=== PATIENT | male | born 1980 | race Hispanic/Latino ===

== ENCOUNTER 2018-04-03 19:56 | Inpatient (IN) | payer SELFPAY ==
[~2018-04-03] VITALS: Ht 188 cm; Wt 154.5 kg
[~2018-04-03 19:56] MED LIST: CLINDAMYCIN HC150 MG PO
--- OUTSIDE RECORDS SUMMARY | 2018-04-03 20:00 | XMS REPORT | Clinical Summary ---
Author Author Agg[facility]wal [facility] Organization [facility] Address Unknown Phone Unavailable Care Team Providers Care Wash Driller Name Role Phone Asked, No Pcp PCP Unavailable Allergies No Known Allergies Medications End Date Status Medication Sig Dispensed Refills Start Date 04/28/2017 clindamycin (CLEOCIN) 300 Take 1 28 capsule 0 MG capsule capsule (300 8 mg total) by mouth every 6 (six) hours for 7 days. 05/01/2017 acetaminophen-codeine Take 1-2 15 tablet 0 (TYLENOL WITH CODEINE #3) tablets by 8 300-30 mg per tablet mouth every 6 (six) hours as needed for mild pain or moderate pain for up to 10 days. Active Problems Not on file Encounters Care Team Description Date Type Specialty Maurice Moss MD Facial abscess (Primary Dx); Cellulitis of face 04/21/2017 Emergency Emergency Medicine after 04/02/2017 Social History Date Tobacco Use Types Packs/Day Years Used Never Smoker Smokeless Tobacco: Never Used Alcohol Use Drinks/Week oz/Week Comments No Sex Assigned at Date Recorded Not on file Industry Job Start Date Occupation Not on file Not on file Not on file Travel End Travel History Travel Start No recent travel history available. Last Filed Vital Signs Time Taken Vital Sign Reading 04/21/2017 9:22 PM LAMP INSPECTOR Blood Pressure 137/70 04/21/2017 9:22 PM LAMP INSPECTOR Pulse 89 04/21/2017 9:22 PM LAMP INSPECTOR Temperature 36.7 C (98 F) 04/21/2017 9:22 PM LAMP INSPECTOR Respiratory Rate 20 04/21/2017 9:22 PM LAMP INSPECTOR Oxygen Saturation 98% - Inhaled Oxygen - Concentration - Weight - 04/21/2017 5:47 PM LAMP INSPECTOR Height 188 cm (6' 2") - Body Mass Index - Plan of Treatment Not on file Procedures Comments Procedure Name Priority Date/Time Associated Diagnosis MA DRAIN SKIN ABSCESS Routine 04/22/2017 SIMPLE 2:48 AM LAMP INSPECTOR POC GLUCOSE Routine 04/21/2017 9:08 PM LAMP INSPECTOR after 04/02/2017 Results * INCISION AND DRAINAGE (04/22/2017 2:48 AM LAMP INSPECTOR) Narrative Performed At Maurice Moss MD 04/22/20172:48 AM I&D/Aspiration/Amputation Performed by: LUCAS CORBETT Authorized by: MAURICE MOSS Consent: Consent obtained:Verbal Consent given by:Patient Risks discussed:Bleeding, incomplete drainage, pain, infection and damage to other organs Location: Type:Abscess Location:Head/neck Head/neck location:Face Pre-procedure details: Skin preparation:Betadine Anesthesia (see MAR for exact dosages): Anesthesia method:Local infiltration Local anesthetic:Lidocaine 1% WITH epi Procedure details: Complexity:Simple Incision types:Stab incision Scalpel blade:11 Drainage:Purulent and serosanguinous Drainage amount:Moderate Wound treatment:Wound left open Packing materials:None Post-procedure details: Patient tolerance of procedure:Tolerated well, no immediate complications * POC glucose (04/21/2017 9:08 PM LAMP INSPECTOR) POC glucose 329 (H) 65 - 100 mg/dL [facility] [place] [facility] Comment: PATHOLOGY AND Meter ID: [id number] GENOMIC MEDICINE Vice President Safety: Faizan Dee Performing Organization Address City/State/Zipcode Phone Number [facility] [place] [facility] [address] [place] [address] PATHOLOGY AND GENOMIC MEDICINE after 04/02/2017 Advance Directives Patient has advance care planning documents on file. For more information, maria luisa schultz contact: Jasen Romo [address] [place] [address]
[2018-04-03] MEDS ORDERED: SODIUM CHLORIDE 0.9% 1000ML 1,000 ML IV STA (20:18)
[2018-04-03] MEDS ORDERED: ONDANSETRON HCL INJ 2MG/ML 2ML 2 MG/ML VIAL IV ONE (20:30)
[2018-04-03] MEDS ORDERED: PIPER-TAZ 3.375 GM 50 ML IV ONE (20:30)
[2018-04-03] MEDS ORDERED: VANCOMYCIN 1GM/NS 250 ML 250 ML IV ONE (20:30)
[2018-04-03] MEDS ORDERED: MORPHINE SULFATE INJ 4 MG/ML INJ 1ML IV ONE (20:30)
[2018-04-03 20:41] LABS: BASOPHILS % 0.3 % (0.0-1.0); EOSINOPHILS # (AUTO) 0.1 (0.0-0.4); EOSINOPHILS % 0.4 % (0.0-6.0); HEMATOCRIT 42.9 % (38.2-49.6); LYMPHOCYTES % 15.9 % (18.0-39.1); MEAN CORPUSCULAR HEMOGLOBIN 28.2 pg (28-32); MEAN CORPUSCULAR VOLUME 80.8 fL (81-99); MONOCYTES # (AUTO) 0.9 (0.2-0.8); MONOCYTES % 6.8 % (4.4-11.3); NEUTROPHILS # (AUTO) 9.6 (2.1-6.9); NEUTROPHILS % 76.2 % (38.7-80.0); PLATELET COUNT 198 x10e3/uL (140-360); RED BLOOD COUNT 5.31 x10e6/uL (4.3-5.7); RED CELL DISTRIBUTION WIDTH 13.2 % (11.7-14.4)
[2018-04-03 20:54] LABS: ALANINE AMINOTRANSFERASE 24 IU/L (0-55); ALBUMIN 3.6 g/dL (3.5-5.0); ALBUMIN/GLOBULIN RATIO 0.9 (0.8-2.0); ALKALINE PHOSPHATASE 76 IU/L (40-150); ANION GAP 13.5 mmol/L (8-16); BLOOD UREA NITROGEN 11 mg/dL (7-26); BUN/CREATININE RATIO 11 (6-25); CALCIUM 9.5 mg/dL (8.4-10.2); CARBON DIOXIDE 28 mmol/L (22-29); CHLORIDE 99 mmol/L (98-107); CREATININE, SERUM 0.97 mg/dL (0.72-1.25); EST GLOMERULAR FILTRATION RATE > 60 ML/MIN (60-); GLUCOSE 260 mg/dL (74-118); POTASSIUM 3.5 mmol/L (3.5-5.1); SODIUM 137 mmol/L (136-145)
[2018-04-03] MEDS ORDERED: DEXTROSE 50% SYRINGE 50 ML IV PRN (22:15)
[2018-04-03] MEDS ORDERED: ONDANSETRON HCL INJ 2MG/ML 2ML 2 MG/ML VIAL IV PRN (22:15)
[2018-04-03] MEDS ORDERED: DIPHENHYDRAMINE HCL INJ 50 MG/ML VIAL IV PRN (22:15)
[2018-04-03] MEDS ORDERED: MORPHINE SULFATE 2 MG/ML SYR 1ML IV PRN (22:15)
[2018-04-03] MEDS ORDERED: ACETAMINOPHEN 325 MG TAB PO PRN (22:15)
[2018-04-03] MEDS ORDERED: LACTULOSE SYRUP 20 GM/30 ML UDC PO PRN (22:15)
[2018-04-03] MEDS ORDERED: HYDRALAZINE HCL 20 MG/ML VIAL IV PRN (22:15)
[2018-04-03] MEDS ORDERED: IBUPROFEN 200 MG TAB PO PRN (22:15)
[2018-04-03] MEDS ORDERED: ZOLPIDEM TARTRATE 5 MG TAB PO PRN (22:15)
[2018-04-03] MEDS ORDERED: ENALAPRILAT IV INJ 1.25 MG/ML VIAL IV PRN (22:15)
[2018-04-03 22:22] LABS: CLARITY,URINE HAZY (CLEAR); COLOR,URINE YELLOW (YELLOW); LEUKOCYTE ESTERASE ,URINE 1+ (NEGATIVE)
[2018-04-03 22:23] LABS: KETONES,URINE TRACE (NEGATIVE); NITRITE,URINE NEGATIVE (NEGATIVE); PROTEIN,URINE DIPSTICK TRACE (NEGATIVE); URINE UROBILINOGEN 0.2 mg/dL (0.2 - 1)
[2018-04-03 22:24] LABS: BACTERIA,URINE FEW /HPF; BILIRUBIN,URINE NEGATIVE (NEGATIVE); EPITHELIAL CELLS,URINE RARE /LPF
--- NOTE | 2018-04-03 22:40 | NUR ---
ADMIT ORDERS RECEIVED, PT UPDATED ON PLAN OF CARE, PT MADE AWARE OF REPORT BEING CALLED.
--- OUTSIDE RECORDS SUMMARY | 2018-04-03 22:42 | XMS REPORT | Clinical Summary ---
Author Author [facility]wal [facility] Organization [facility] Address Unknown Phone Unavailable Care Team Providers Care Rn Case Manager Hospice Name Role Phone Asked, No Pcp PCP [...] Taken Vital Sign Reading 04/21/2017 9:22 PM NAILING MACHINE OPERATOR Blood Pressure 137/70 04/21/2017 9:22 PM NAILING MACHINE OPERATOR Pulse 89 04/21/2017 9:22 PM NAILING MACHINE OPERATOR Temperature 36.7 C (98 F) 04/21/2017 9:22 PM NAILING MACHINE OPERATOR Respiratory Rate 20 04/21/2017 9:22 PM NAILING MACHINE OPERATOR Oxygen Saturation 98% - Inhaled Oxygen - Concentration - Weight - 04/21/2017 5:47 PM NAILING MACHINE OPERATOR Height 188 cm (6' 2") - Body Mass Index - Plan of Treatment Not on file Procedures Comments Procedure Name Priority Date/Time Associated Diagnosis [place] DRAIN SKIN ABSCESS Routine 04/22/2017 SIMPLE 2:48 AM NAILING MACHINE OPERATOR POC GLUCOSE Routine 04/21/2017 9:08 PM NAILING MACHINE OPERATOR after 04/02/2017 Results * INCISION AND DRAINAGE (04/22/2017 2:48 AM NAILING MACHINE OPERATOR) Narrative Performed At Maurice Moss MD 04/22/20172:48 [...] complications * POC glucose (04/21/2017 9:08 PM NAILING MACHINE OPERATOR) POC glucose 329 (H) 65 - 100 mg/dL [facility] [place] [facility] OF Comment: PATHOLOGY AND Meter ID: [id number] GENOMIC MEDICINE Parts Counter Sales Person: Faizan Dee Performing Organization Address City/State/Zipcode Phone Number [facility] [place] [facility] OF [address] [place] [address] PATHOLOGY AND GENOMIC MEDICINE after 04/02/2017 Advance Directives Patient has advance care planning documents on file. For more information, maria luisa schultz contact: Jasen Romo [address] [place] [address]
--- NOTE | 2018-04-03 23:01 | Diagnostic Imaging Report ---
Exam: CT of the pelvis with IV contrast Indication: Left-sided abscess around testicle, evaluate for extension into the groin Comparison: None Findings: Partially evaluated is a complex cystic structure in the left scrotum measuring approximately 3 cm with adjacent fat stranding and overlying skin thickening. There is no extension into the inguinal canal or pelvis. Normal appearance of the bladder, prostate, seminal vesicles, and partially visualized bowel. Normal appendix. No free fluid or free air. Superficial right leg venous collateral vessels. Normal appearance of the partially visualized arterial system. Impression: There is an approximately 3 cm abscess in the left scrotum. No extension to the perineum or pelvis. Signed by: Dr. Amara Bingham M.D. on 04/03/2018 10:57 PM
[2018-04-03] MEDS: PIPER-TAZ 3.375 GM 50 ML IV SCH (23:54)
[2018-04-03] MEDS: SODIUM CHLORIDE 0.9% 1000ML 1,000 ML IV SCH (23:54)
--- NOTE | 2018-04-03 23:58 | NUR ---
received pt from ER to room 213, AAOx4, resp even and unlabored, c/o of pain /10 to scrotum, pain meds on board, dark purple area to left side of scrotum with a small scabbed area below it, ambulates by self with steady gait, left AC IV 20G patent and intact with NS @125, NPO, pt able to verbalize needs, bed in lowest and locked position with call light in reach, instructed to call when assistance needed
[2018-04-04] VITALS (8 sets, daily range): BP systolic 117–153; BP diastolic 70–94
[2018-04-04] MEDS: ONDANSETRON HCL INJ 2MG/ML 2ML 2 MG/ML VIAL IV PRN ×3 (02:09→21:04)
[2018-04-04] MEDS: MORPHINE SULFATE INJ 4 MG/ML INJ 1ML IV PRN ×5 (02:09→21:04)
[2018-04-04] MEDS: VANCOMYCIN 1GM/NS 250 ML 250 ML IV SCH ×2 (02:30→15:26)
[2018-04-04 05:11] LABS: BASOPHILS % 0.2 % (0.0-1.0); EOSINOPHILS # (AUTO) 0.1 (0.0-0.4); EOSINOPHILS % 0.6 % (0.0-6.0); HEMATOCRIT 38.1 % (38.2-49.6); HEMOGLOBIN 13.2 g/dL (14.0-18.0); LYMPHOCYTES % 19.7 % (18.0-39.1); MEAN CORPUSCULAR HEMOGLOBIN 27.8 pg (28-32); MEAN CORPUSCULAR HGB CONC 34.6 g/dL (31-35); MEAN CORPUSCULAR VOLUME 80.2 fL (81-99); MONOCYTES # (AUTO) 0.7 (0.2-0.8); MONOCYTES % 7.2 % (4.4-11.3); NEUTROPHILS # (AUTO) 7.4 (2.1-6.9); NEUTROPHILS % 71.9 % (38.7-80.0); PLATELET COUNT 176 x10e3/uL (140-360); RED BLOOD COUNT 4.75 x10e6/uL (4.3-5.7); RED CELL DISTRIBUTION WIDTH 13.3 % (11.7-14.4)
[2018-04-04 05:33] LABS: ANION GAP 11.5 mmol/L (8-16); BLOOD UREA NITROGEN 11 mg/dL (7-26); BUN/CREATININE RATIO 14 (6-25); CALCIUM 8.6 mg/dL (8.4-10.2); CARBON DIOXIDE 23 mmol/L (22-29); CHLORIDE 103 mmol/L (98-107); CREATININE, SERUM 0.78 mg/dL (0.72-1.25); EST GLOMERULAR FILTRATION RATE > 60 ML/MIN (60-); GLUCOSE 232 mg/dL (74-118); POTASSIUM 3.5 mmol/L (3.5-5.1); SODIUM 134 mmol/L (136-145)
[2018-04-04] MEDS: PIPER-TAZ 3.375 GM 50 ML IV SCH ×3 (05:43→18:04)
[2018-04-04] MEDS ORDERED: IOPAMIDOL 370 MG/ML 200 ML INFUS..BTL INJ ONE (06:32)
[2018-04-04] MEDS ORDERED: SODIUM CHLORIDE 0.9% 50ML 50 ML ONE (06:32)
--- NOTE | 2018-04-04 06:47 | Diagnostic Imaging Report ---
EXAM: CHEST SINGLE (PORTABLE), AP 1 view INDICATION: Preoperative chest x-ray COMPARISON: None FINDINGS: LINES/TUBES: None LUNGS: No consolidations or edema. PLEURA: No effusions or pneumothorax. HEART AND MEDIASTINUM: Normal size and contour. BONES AND SOFT TISSUES: No acute findings. IMPRESSION: No acute thoracic abnormality. Signed by: Dr. Amara Bingham M.D. on 04/04/2018 6:44 AM
[2018-04-04] MEDS: FAMOTIDINE 20 MG/2 ML VIAL IV SCH ×2 (08:35→18:04)
--- NOTE | 2018-04-04 09:43 | Consultation ---
DISCARD THIS DICTATION STOPPED AT THIS POINT. Job#: [id number] MELCHOR ALARCON
[2018-04-04] MEDS: SODIUM CHLORIDE 0.9% 1000ML 1,000 ML IV SCH ×2 (09:56→22:13)
[2018-04-04] MEDS: INSULIN REGULAR, HUMAN 100 UNIT/1 ML 3ML VIAL SQ SCH ×4 (09:56→20:58)
--- NOTE | 2018-04-04 10:03 | Consultation ---
DATE OF CONSULTATION: April 04, 2018 UROLOGY CONSULTATION REASON FOR CONSULTATION: Scrotal abscess. HISTORY OF PRESENT ILLNESS: Yash Macdonald is a 37-year-old man with no previous urological history. He denies hematuria, dysuria, urinary tract infections, or urolithiasis. Patient presented with a 3-day history of left scrotal swelling and pain. He did not have any fever at home, he had a fever of 99.9 in the emergency room. PAST MEDICAL AND SURGICAL HISTORY: 1. Status post colon resection and colostomy, followed by colostomy takedown for diverticulitis. 2. Diabetes mellitus. 3. Obesity. ALLERGIES: NONE KNOWN. CURRENT MEDICATIONS: Please refer to the MAR. SOCIAL HISTORY: The patient quit smoking. He currently does not smoke, drink, or do any drugs. He is a sánchez. He has supportive family at the bedside. FAMILY HISTORY: Noncontributory to the urological problems. REVIEW OF SYSTEMS: As consistent with above history of present illness and past medical history, otherwise negative for all systems. PHYSICAL EXAMINATION: GENERAL: Healthy-appearing 37-year-old man, lying in bed, in no apparent distress. VITAL SIGNS: His temperature maximum was 99.9. His vital signs are stable. ABDOMEN: Obese, soft, nondistended, nontender without costovertebral angle tenderness. GENITOURINARY: Testes descended bilaterally. Testes and epididymides bilaterally palpably normal. Patient has a uncircumcised male phallus with severe phimosis. I cannot see the meatus. Patient has a superficial scrotal abscess of the left scrotal neck. It is spontaneously draining. I placed a culture swab through this opening and obtained a culture and handed it to the nurse. Purulent pus drained from that. When I put the swab in, I broke up loculations and essentially did incision and drainage of his abscess at the bedside. For the remaining physical examination and review of systems, please refer to the admission history and physical on the chart. LABORATORY STUDIES: Pelvis CT showed a 3-cm abscess in the left scrotum with no extension, no sign of Kelly's gangrene. White blood cell count is 10,290, yesterday was 12,590; hemoglobin is low at 13.2. The patient's sodium is slightly low at 134. His creatinine is normal at 0.78, glucose is elevated. Urinalysis showed 11 to 20 RBCs, 11 to 20 WBCs. Blood cultures are pending. ASSESSMENT: 1. Left scrotal abscess that is now drained. 2. Obesity. 3. Severe phimosis. 4. Leukocytosis that improved. 5. Mild anemia. 6. Mild hyponatremia. 7. Microhematuria. 8. Pyuria. PLAN: 1. Cannot obtain clean catch urinary specimen due to severe phimosis. This is probably not a valid urinalysis and the patient is asymptomatic. 2. I instructed the nurse to pack the abscess and change the pack with 1/4-inch iodoform and change the packing b.i.d. 3. The patient is on broad-spectrum antibiotics and he should remain on those. 4. I deferred the hematological and electrolyte abnormalities to the primary physician. 5. Will plan on serial examinations. Hopefully, we can avoid formal surgical drainage in the operating room. 6. The patient will need follow up. He will need a circumcision at a later time. Thank you very much for involving us in the care of your patient. Will be happy to follow him along with you as well as an outpatient. Job#: [id number]
[2018-04-04] MEDS: HYDROCODONE/APAP 7.5MG-325MG 1 EA TAB PO PRN ×2 (13:42→18:05)
--- NOTE | 2018-04-04 14:34 | NUR ---
CASE MANAGEMENT INITIAL ASSESSMENT School Bus Driver/Mechanic to bedside to discuss plan of care with patient/family. CM/SW role and care transitions discussed. Anticipated discharge plan discussed along with duration of care. CM discussed patients right to make decisions in care. CM/SW work hours given. Patient lives: PATIENT LIVES IN 1 STORY HOME WITH MOM. PATIENT GOES BACK AND FORTH TO MOM'S HOUSE AND GIRLFRIENDS HOUSE WHERE HIS KIDS STAY. Admit/Transfer: ED POA/Emergency contact: MOTHER CECE SMITH: [phone] Current/Previous Home Health: NONE PCP/Follow-up Care: DOES NOT SEE ANYONE BUT WANTS TO SEE DR. David DAVIS Current/Previous DME: NONE AT THIS TIME. PATIENT INDEPENDENT Other Services: NONE AT THIS TIME Employment Status: EMPLOYED; TRYING TO GET BUSINESS ([employer]) BACK UP AFTER [employer]AN[employer] Areas of Concerns: WEIGHT Referral Needs: POSSIBLE HOME HEALTH IF FAMILY UNABLE TO HELP WITH DRESSING CHANGES. Education Needs: WOUND CARE/ WEIGHT CONTROL IMM/REAL given and signed (if applicable): IMM Goal for discharge: DISCHARGE HOME WITH NO NEEDS CM left Transm[employer] card at the bedside with contact information. Name and number was also written on the patients whiteboard. Patient verbalized understanding of discussion. CM will follow-up with ongoing discharge and transition of care needs.
--- NOTE | 2018-04-04 16:05 | NUR ---
Visit made by the Spiritual Care Department Pastoral Visitor, Geneva Diego. PV provided pastoral presence, prayer, hospitality, and supportive listening. Pastoral Visitor informed pt/family of the scope of [employer]sole T[employer] St[employer]cher [employer] and availability. MADDIE GARG Cloth Mercerizer Back Tender Spiritual Care Department O: [phone] Pager: [phone] ([phone] number calling from)
[2018-04-04] MEDS: INSULIN DETEMIR 100 UNIT/ML PEN SQ SCH (20:58)
--- NOTE | 2018-04-04 23:08 | History and Physical ---
HISTORY OF PRESENT ILLNESS: A 37-year-old male who had a past medical history positive for diabetes. Came here with cellulitis and possible abscess on the scrotum. He is a patient of Dr. Maximiliano Cardoza who declined to see him and he referred to doctor customer retention representative in the emergency room. REVIEW OF SYSTEMS CARDIOVASCULAR: No chest pain or palpitations. RESPIRATORY: No shortness of breath, no coughing. GASTROINTESTINAL: No nausea, vomiting or diarrhea. GENITOURINARY: No frequency or dysuria. ALLERGIES: NOT ALLERGIC TO ANY MEDICATION. SOCIAL HISTORY: He does not smoke, he does not drink. PAST MEDICAL HISTORY: Positive for diabetes mellitus. PHYSICAL EXAMINATION VITAL SIGNS: Blood pressure 120/79, temperature 98.0, heart rate 85 per minute, respiratory rate 16 per minute. Oxygen saturation 96%. HEART: Shows regular rhythm. Normal S1, S2 sounds. LUNGS: Clear bilaterally. ABDOMEN: Soft. : Scrotal cellulitis. EXTREMITIES: Show no evidence of cyanosis or trauma. LABS: On the BMP, sodium 134, potassium 3.5, chloride 103, CO2 23, BUN 11, creatinine 0.78, glucose 232. On the CBC, white blood count 10.2, hemoglobin 13.2, hematocrit 38.1, platelet count of 176,000. AST 14, ALT 24, total bilirubin 0.6, alkaline phosphatase 76. FINAL IMPRESSION 1. Scrotal cellulitis in the past. 2. Uncontrolled diabetes mellitus type 2. 3. Obesity. 4. Hypokalemia. PLAN OF TREATMENT: Continue Zosyn 3.375 g IV q.6 h., vancomycin 1 g IV twice a day, normal saline at 125 mL an hour, Zofran 4 mg IV q.4 h. as needed, ibuprofen 400 mg q.6 h. as needed for pain, lactulose 20 g twice a day, Zofran 4 mg IV q.4 h. As needed monitor blood sugar a.c. and nightly. Ambien 5 mg at night p.r.n. for sleep, enalapril at 1.25 mg IV q.6 h. as needed for hypertension, morphine 4 mg IV q.4 h. as needed for pain, D50 IV push as needed for hypoglycemia, Pepcid 20 mg twice a day, hydralazine 10 mg IV q.4 h. as needed for hypertension, Tylenol 650 mg p.o. q.6 h. as needed for pain or fever, Benadryl 25 mg IV q.6 h. as needed for itching, [place] 1 mg tablet q.6 h. as needed for pain. Also, we are going to put him on Levemir 12 units at bedtime. Continue diabetic diet. Dr. Garcia has been consulted from the urology point of view because of the cellulitis on the scrotum and Dr. Rich for infectious disease. Diet 1600 calorie ADA diet. Job#: [id number] GE
[2018-04-05] VITALS (7 sets, daily range): BP systolic 124–178; BP diastolic 68–98
[2018-04-05] MEDS: PIPER-TAZ 3.375 GM 50 ML IV SCH ×5 (00:03→23:44)
[2018-04-05] MEDS: HYDROCODONE/APAP 7.5MG-325MG 1 EA TAB PO PRN ×4 (00:03→23:15)
[2018-04-05] MEDS: MORPHINE SULFATE INJ 4 MG/ML INJ 1ML IV PRN ×5 (01:08→21:27)
[2018-04-05] MEDS: VANCOMYCIN 1GM/NS 250 ML 250 ML IV SCH ×2 (03:29→15:32)
[2018-04-05] MEDS: INSULIN REGULAR, HUMAN 100 UNIT/1 ML 3ML VIAL SQ SCH ×4 (07:30→21:28)
[2018-04-05 08:22] LABS: BASOPHILS % 0.2 % (0.0-1.0); EOSINOPHILS # (AUTO) 0.1 (0.0-0.4); EOSINOPHILS % 1.7 % (0.0-6.0); HEMATOCRIT 36.3 % (38.2-49.6); HEMOGLOBIN 12.4 g/dL (14.0-18.0); LYMPHOCYTES % 23.6 % (18.0-39.1); MEAN CORPUSCULAR HEMOGLOBIN 27.9 pg (28-32); MEAN CORPUSCULAR HGB CONC 34.2 g/dL (31-35); MEAN CORPUSCULAR VOLUME 81.8 fL (81-99); MONOCYTES # (AUTO) 0.7 (0.2-0.8); MONOCYTES % 8.6 % (4.4-11.3); NEUTROPHILS # (AUTO) 5.5 (2.1-6.9); NEUTROPHILS % 65.7 % (38.7-80.0); PLATELET COUNT 176 x10e3/uL (140-360); RED BLOOD COUNT 4.44 x10e6/uL (4.3-5.7); RED CELL DISTRIBUTION WIDTH 13.5 % (11.7-14.4)
[2018-04-05 08:40] LABS: ANION GAP 10.6 mmol/L (8-16); BLOOD UREA NITROGEN 13 mg/dL (7-26); BUN/CREATININE RATIO 14 (6-25); CALCIUM 8.2 mg/dL (8.4-10.2); CARBON DIOXIDE 26 mmol/L (22-29); CHLORIDE 102 mmol/L (98-107); CREATININE, SERUM 0.95 mg/dL (0.72-1.25); EST GLOMERULAR FILTRATION RATE > 60 ML/MIN (60-); GLUCOSE 241 mg/dL (74-118); POTASSIUM 3.6 mmol/L (3.5-5.1); SODIUM 135 mmol/L (136-145)
[2018-04-05] MEDS: SODIUM CHLORIDE 0.9% 1000ML 1,000 ML IV SCH ×2 (08:42→13:51)
[2018-04-05] MEDS: FAMOTIDINE 20 MG/2 ML VIAL IV SCH ×2 (08:46→17:22)
--- NOTE | 2018-04-05 09:35 | NUR ---
GAVE PACKET OF INFORMATION WITH COMMUNITY RESOURCES FOR ASSISTANCE WITH LOW TO NO INCOME TO PATIENT. RESOURCES THAT PATIENT MAY BE ABLE TO FOLLOW UP UPON DISCHARGE. PT EDUCATED ON EACH RESOURCE AND UNDERSTANDING HOW TO FOLLOW UP TO SEE IF QUALIFIED FOR EACH RESOURCE.
--- NOTE | 2018-04-05 13:17 | Consultation ---
DATE OF CONSULTATION: INFECTIOUS DISEASE CONSULTATION REASON FOR CONSULTATION: Abscess of the groin and scrotal area. HISTORY OF PRESENT ILLNESS: This is a patient who is a 37-year-old male with history of diabetes mellitus, history of obesity. He had a small lesion on his testicle. He tried to scratch it. Then it became red and swollen. So, he tried home remedies including onion, including Aloe vera, but it has gotten progressively worse. He squeezed some pus. It got progressively worse and had fever and chills. So, the patient came to the hospital where he is being admitted. Urology has been consulted. He underwent I&D already. PAST MEDICAL HISTORY: Diabetes mellitus, obesity. PAST SURGICAL HISTORY: Denies. ALLERGIES: NKA. SOCIAL HISTORY: There is no smoking, drug abuse, alcohol abuse. FAMILY HISTORY: Is unremarkable. REVIEW OF SYSTEMS: HEENT: Negative. PULMONARY: Negative. CARDIAC: Negative. : Negative. PHYSICAL EXAMINATION: GENERAL: He is currently alert, oriented, does not seem to be in acute distress. VITALS: Stable. Currently afebrile. HEENT: He does not appear icteric. NECK: Supple. No JVD, no lymphadenopathy, no thyromegaly. CHEST: Clear bilaterally. HEART: S1, S2. No S3, no S4. No murmur. ABDOMEN: Soft. There is erythema; there is edema noted. IMPRESSION: Abscess of the groin with the scrotal area in a patient with obesity and diabetes. I would recommend to increase the vancomycin to 1.5 grams q.12. Check a trough with the 3rd dose. Continue with Zosyn. Recheck CBC, recheck chem panel. Diabetic control. Will follow with you. Thank you for asking me to see this patient. Job#: [id number] EV
--- NOTE | 2018-04-05 21:00 | Progress Note ---
DATE: INTERNAL MEDICINE PROGRESS NOTE SUBJECTIVE: Patient is doing well. No significant complaint. PHYSICAL EXAMINATION: HEART: Shows regular rhythm. Normal S1 and S2 sounds. EXTREMITIES: Showed no evidence of cyanosis, edema, or trauma. VITAL SIGNS: Blood pressure 140/83, temperature 96.8, heart rate 67 per minute, respiratory rate 18 per minute, oxygen saturation 99%. LABS: On the BMP, sodium 135, potassium 3.6, chloride 102, CO2 26, BUN 13, creatinine 0.95, glucose 241. On the CBC, white blood count 8.33, hemoglobin 12.4, hematocrit 36.3, platelet count 176,000. AST 14, ALT 24, total bilirubin 0.6, alkaline phosphatase 76. FINAL IMPRESSION: 1. Scrotal cellulitis with an abscess. 2. Uncontrolled diabetes mellitus type 2. 3. Essential hypertension. PLAN: Patient will continue Zosyn 3.375 g IV q.6h., vancomycin 1 g IV twice a day. We are going to discontinue IV fluids. Continue Zofran 4 mg IV q.4h. as needed, ibuprofen 400 mg p.o. q.6h. as needed, lactulose 20 g twice a day, Zofran 4 mg IV q.6h. as needed for vomiting. Continue monitoring blood sugar a.c. and at bedtime. Ambien 5 mg at night p.r.n. for sleep, enalapril at 1.25 mg IV q.6h. as needed for hypertension, morphine 4 mg IV q.4h. as needed for pain, Pepcid 20 mg twice a day, hydralazine 10 mg IV q.4h. as needed for hypertension, Levemir 12 units at bedtime, Tylenol 650 mg q.6h. as needed for pain or fever, Benadryl 25 mg q.6h. as needed for itching, Cross 1 tablet q.6h. as needed for moderate pain. Dr. Rich is on the case for infectious disease, Dr. Garcia for urology. Tentative discharge tomorrow once we identify the bacteria. So far he is growing Staphylococcus aureus in the wound culture. Doing better. We are going to start him on Amaryl 4 mg daily for the uncontrolled blood sugar also. Job#: [id number]
[2018-04-05] MEDS: INSULIN DETEMIR 100 UNIT/ML PEN SQ SCH (21:28)
[2018-04-06] VITALS (7 sets, daily range): BP systolic 134–176; BP diastolic 75–107
[2018-04-06] MEDS ORDERED: SODIUM CHLORIDE 0.9% 250ML 250 ML ONE (01:25)
[2018-04-06] MEDS: MORPHINE SULFATE INJ 4 MG/ML INJ 1ML IV PRN ×5 (01:47→22:45)
[2018-04-06] MEDS: VANCOMYCIN HCL 1.5 GM in SODIUM CHLORIDE 0.9% 250ML 300 ML IV SCH ×2 (02:21→15:54)
[2018-04-06 05:32] LABS: BASOPHILS % 0.3 % (0.0-1.0); EOSINOPHILS # (AUTO) 0.1 (0.0-0.4); EOSINOPHILS % 1.7 % (0.0-6.0); HEMATOCRIT 35.7 % (38.2-49.6); HEMOGLOBIN 12.2 g/dL (14.0-18.0); LYMPHOCYTES # (AUTO) 2.3 (1.0-3.2); LYMPHOCYTES % 29.3 % (18.0-39.1); MEAN CORPUSCULAR HEMOGLOBIN 27.9 pg (28-32); MEAN CORPUSCULAR HGB CONC 34.2 g/dL (31-35); MEAN CORPUSCULAR VOLUME 81.5 fL (81-99); MONOCYTES # (AUTO) 0.6 (0.2-0.8); MONOCYTES % 7.1 % (4.4-11.3); NEUTROPHILS # (AUTO) 4.8 (2.1-6.9); NEUTROPHILS % 61.3 % (38.7-80.0); PLATELET COUNT 169 x10e3/uL (140-360); RED BLOOD COUNT 4.38 x10e6/uL (4.3-5.7); RED CELL DISTRIBUTION WIDTH 13.2 % (11.7-14.4)
[2018-04-06 06:01] LABS: ANION GAP 9.5 mmol/L (8-16); BLOOD UREA NITROGEN 10 mg/dL (7-26); BUN/CREATININE RATIO 12 (6-25); CALCIUM 8.3 mg/dL (8.4-10.2); CARBON DIOXIDE 27 mmol/L (22-29); CHLORIDE 104 mmol/L (98-107); CREATININE, SERUM 0.82 mg/dL (0.72-1.25); EST GLOMERULAR FILTRATION RATE > 60 ML/MIN (60-); GLUCOSE 154 mg/dL (74-118); POTASSIUM 3.5 mmol/L (3.5-5.1); SODIUM 137 mmol/L (136-145)
[2018-04-06] MEDS: PIPER-TAZ 3.375 GM 50 ML IV SCH ×4 (06:49→23:15)
[2018-04-06] MEDS: INSULIN REGULAR, HUMAN 100 UNIT/1 ML 3ML VIAL SQ SCH ×4 (07:30→21:00)
[2018-04-06] MEDS: GLIMEPIRIDE 2 MG TAB PO SCH ×2 (09:31→16:10)
[2018-04-06] MEDS: HYDROCODONE/APAP 7.5MG-325MG 1 EA TAB PO PRN ×2 (09:31→23:53)
--- NOTE | 2018-04-06 11:30 | NUR ---
wound care treatment instruction provided. teaching provided to patient as he states he will be doing himself. patient able to return demonstration.
--- NOTE | 2018-04-06 12:00 | NUR ---
per may d/c home from his standpoint and continue wound care twice a day. instructed pt to f/u with him in office.
[2018-04-06] MEDS ORDERED: CEFEPIME HCL 1 GM VIAL IV SCH (12:15)
[2018-04-06] MEDS: CEFEPIME 1GM/NS 0.9% 50 ML 50 ML IV SCH ×2 (12:44→22:34)
--- NOTE | 2018-04-06 18:14 | NUR ---
per Dr. Chambers, patient to d/c home tomorrow if ok with Dr. Garcia and . MD states patient requires diabetic teaching on use of glucometer, insulin administration and nutrition prior to d/c. also states will leave RX in chart for patient to d/c tomorrow, any further RX needed for antibiotics must be obtained from infectious disease.
[2018-04-06] MEDS: INSULIN DETEMIR 100 UNIT/ML PEN SQ SCH (21:00)
--- NOTE | 2018-04-06 21:46 | Discharge Summary ---
[id number]-old male, patient of Dr. David Cardoza that has past medical history positive for diet-controlled diabetes, that came to the emergency room because of a scrotal abscess. Dr. Garcia saw him from the urology point of view, he drained the abscess, put some packing. Patient was found to have MRSA in the drainage of the scrotum and patient was started of course on IV antibiotic, which included vancomycin and Zosyn and cefepime. Dr. Garcia, urology recommended for him that he is able to go home. He received wound care teaching. He is going to be switched to Bactrim because MRSA is sensitive to Bactrim. Also Dr. Rich, infectious disease doctor is on the case. We are going to okay with him for him to be discharged. Patient is going to follow up with his primary care physician, Dr. Maximiliano Cardoza and Dr. Garcia, urology and Dr. Rich, infectious disease specialist also. Patient is going to get diabetic teaching, how to check the insulin, how to monitor the blood sugar. I already told him how to react to hypoglycemia and hyperglycemia. I told the patient that if the blood sugar is less than 80, to stop the insulin and to stop the glimepiride and drink immediately any drink with plain sugar. The nurse is going to teach him how to check the insulin and about the diabetic diet of course. Patient is told to do exercise to lose some weight and to monitor the blood sugar before meals and at bedtime. Wound care teaching has been done by nurses order also. Patient is going to be going home tomorrow if okay with Dr. Garcia, who has already released the patient and Dr. Rich, infectious disease specialist. As I said, he is going to follow up with his primary care physician Dr. Maxmiiliano Cardoza, and Dr. Garcia and Dr. Rich. PHYSICAL EXAMINATION: Vital Signs: Blood pressure 142/75, temperature 96.7, heart rate 65 per minute, respiratory rate 20 per minute, oxygen saturation 99%. Heart: Shows regular rhythm, normal S1 and S2 sounds. Lungs: Clear bilaterally. Abdomen: Soft. : The scrotal area has a dressing with packing. On the BMP, sodium 137, potassium 3.5, chloride 104, CO2 27, BUN 10, creatinine 0.82, glucose 154. On the CBC, white blood count 7.75, hemoglobin 12.2, hematocrit 35.7, platelet count 159,000. AST 14, ALT 24, total bilirubin 0.6, alkaline phosphatase 76. FINAL IMPRESSION: 1. Scrotal abscess. 2. Uncontrolled diabetes mellitus type 2. 3. Obesity. PLAN OF TREATMENT: He is going to be discharged on Amaryl 2 mg twice a day; Levemir 12 units subcutaneously at bedtime, to be placed on hold if the blood sugar was at any time below 80. He had to be on 1800 calories ADA diet. We are going to give him Ultracet 1 tablet q.4h. as needed for pain, Bactrim DS 1 tablet twice a day for a total of 2 weeks. Also, patient is going to get teaching by nurses for how to do wound care. He is going to follow up with Dr. Baudilio Garcia, urologist, he is going to follow up with Dr. Rich, infectious disease, and he is going to follow up with Dr. Maximiliano Cardoza which is his primary care physician. Diet will be 1800 calories ADA diet. Patient is told to go to the emergency room should he have any worsening of the symptoms. CIERA SON MD Job#: [id number]
[2018-04-07 01:24] VITALS: BP 118/66
[2018-04-07 01:26] VITALS: BP 149/78
[2018-04-07] MEDS: VANCOMYCIN HCL 1.5 GM in SODIUM CHLORIDE 0.9% 250ML 300 ML IV SCH (02:41)
[2018-04-07] MEDS: MORPHINE SULFATE INJ 4 MG/ML INJ 1ML IV PRN ×2 (02:54→07:40)
[2018-04-07] MEDS: PIPER-TAZ 3.375 GM 50 ML IV SCH (05:26)
[2018-04-07 06:33] VITALS: BP 175/95
[2018-04-07 08:08] VITALS: BP 179/100
[2018-04-07] MEDS: CEFEPIME 1GM/NS 0.9% 50 ML 50 ML IV SCH (08:57)
[2018-04-07] MEDS: GLIMEPIRIDE 2 MG TAB PO SCH (08:57)
--- NOTE | 2018-04-07 10:22 | NUR ---
Nutrition Screen Note RD Recommendation for Physician: -Continue ADA diet as ordered -RD provided education on diabetic diet on 04/07 -Rec outpatient diabetes management for further education and monitoring Plan of Care: RD following, monitoring for tolerance and adequacy, education Nutrition reason for involvement: MD Consult diabetic teaching Primary Diagnose(s): Scrotal abscess. PMH: DM Ht: 74in Wt: 340.56lb BMI: 43.7kg/m2 IBW: 190lb RD Assessment: (04/07) Chart reviewed. Labs and meds reviewed. 37 yo obese M, who is admitted for scrotal abscess. Visited pt in the room. Pt reports eating/ drinking well [employer] without any recent weight loss. Appetite is good with ~75-100% meal intake recorded by RN. No GI complains noted. LBM - 04/07, normal per pt. No chewing or swallowing issue. RD provided 20 minutes of diabetes education. All questions have been answered. Will continue to monitor and follow. Current Diet: ADA Malnutrition Evaluation (04/07/18) The patient does not meet criteria for a specified degree of malnutrition at this time. Will re-evaluate at follow-up as appropriate. Diet Education Needs Assessment: Diet education indicated, pt is agreeable with plan. Learner(s): pt Barriers: No barriers identified. Cultural/Language Modifications: No cultural/language modifications noted. Pt speaks Divehi. Readiness: Pt eager to learn. Method: Handouts, explanation Topics: Carbohydrate exchanges, Carbohydrate counting handouts, Reading the nutrition label, meal planning tips, servings/portion sizes Understanding/Compliance: Expect good understanding/compliance from pt. Will benefit from reinforcement. Nutrition Care Level: low Signed: Sandi Campos MS, RD, LD
[2018-04-07] MEDS ORDERED: POTASSIUM CHLORIDE 20 MEQ TAB CR PO STA (11:02)
[2018-04-07] MEDS ORDERED: AMARYL2 MG PO (11:34)
[2018-04-07] MEDS ORDERED: LEVEMIR100 UNIT/1 SQ (11:34)
[2018-04-07] MEDS ORDERED: LISINOPRIL10 MG PO (11:36)
[2018-04-07] MEDS ORDERED: ULTRACET TABLE1 EACH PO (11:36)
[2018-04-07] MEDS ORDERED: BACTRIM DS TAB1 EACH PO (11:49)
[2018-04-07] MEDS ORDERED: TYLENOL WITH C1 EACH PO (11:49)
[2018-04-07 12:04] VITALS: BP 155/91
[2018-04-07] MEDS: HYDROCODONE/APAP 7.5MG-325MG 1 EA TAB PO PRN (12:30)
--- NOTE | 2018-04-07 12:55 | NUR ---
Patient demonstrated proper packing to wound. Discharge instructions and prescriptions given to the patient , IV was removed from left AC with tip intact.
--- NOTE | 2018-04-07 13:20 | NUR ---
Patient left the floor via wheelchair, he is discharged home.
--- NOTE | 2018-04-07 14:34 | Discharge Summary ---
ADDENDUM: HISTORY OF PRESENT ILLNESS: The patient came here with scrotal abscess. He was found to have MRSA on the scrotal abscess culture. Patient is going to be going home today. Instruction has been given him for diabetic diet, how to check the insulin, how to monitor the blood sugar, also how to do the dressing changes which the patient apparently is very familiar with. PHYSICAL EXAM: VITAL SIGNS: Blood pressure 179/102, temperature 96 degrees, heart rate 67 per minute, respiratory rate 21 per minute, oxygen saturation 96%. HEART: Shows regular rhythm. Normal S1 and S2 sounds. LUNGS: Clear bilaterally. ABDOMEN: Soft. On the BMP: Sodium 137, potassium 3.5, chloride 104, CO2 27, BUN 10, creatinine 0.82, glucose 154. On the CBC: White blood count 7.75, hemoglobin is 12.2, hematocrit 35.7, platelet count 169,000. AST 14, ALT 24, total bilirubin 0.6, alkaline phosphatase 76. FINAL IMPRESSIONS: 1. Scrotal abscess. 2. Uncontrolled diabetes mellitus type 2. PLAN OF TREATMENT: He is going to be discharged home on Bactrim DS 1 tablet twice a day for a total of 14 days. Continue the Levemir 12 units at bedtime. Continue ramipril at 2 mg twice a day. Ultracet 1 tablet q.6 hours as needed for pain. We are going to start the patient on lisinopril 10 mg daily because of hypertension also. Follow up with Dr. Maximiliano Cardoza, his primary care physician, and Dr. Garcia, urologist. CIERA SON MD Job#: [id number]
[2018-04-08] MEDS ORDERED: LISINOPRIL 10 MG TAB PO SCH (09:00)
== END 2018-04-07 13:20 | disposition home or self-care (01) | DRG 728 ==
LOC: ER 19:56 → ERHOLD 22:39 → MED/SURG2 22:58
PROVIDERS: ADMIT Internal Medicine; ATTEND Internal Medicine
PROC: 0J9C0ZX Drainage of Pelvic Region Subcutaneous Tissue and Fascia, Open Approach, Diagnostic (ICD-10-PCS; principal; 2018-04-03)
DX: N49.2 Inflammatory disorders of scrotum (principal); Z68.41 Body mass index [BMI] 40.0-44.9, adult; E11.65 Type 2 diabetes mellitus with hyperglycemia; Z79.4 Long term (current) use of insulin; I10 Essential (primary) hypertension; Z90.49 Acquired absence of other specified parts of digestive tract; E66.9 Obesity, unspecified; E87.6 Hypokalemia; D64.9 Anemia, unspecified; R31.29 Other microscopic hematuria; B95.62 Methicillin resistant Staphylococcus aureus infection as the cause of diseases classified elsewhere; N47.1 Phimosis
CPT/HCPCS: 36415; 71045; 72193; 80048; 80053; 80202; 81001; 82948; 83605; 85025; 87040; 87071; 87186; 87205; 93005; 96361; 99284; J0692; J2270; J2405; J2543; J3370; J7030; J7050; Q9967